=== PATIENT | male | born 1970 | race Caucasian/White ===

== ENCOUNTER 2019-07-04 11:58 | Emergency (ER) | payer SELFPAY ==
[~2019-07-04] VITALS: Ht 182.8 cm; Wt 95.3 kg
[~2019-07-04 11:58] MED LIST: CYCLOBENZAPRINE10 MG PO; FLEXERIL10 MG PO; MEDROL DOSEPAK4 MG PO; NAPROSYN500 MG PO; NORCO 5-325 TA1 EACH PO; OMNICEF300 MG PO; VICODIN 5/500 505 MG PO; ZYRTEC10 MG PO
[2019-07-04] MEDS ORDERED: TYLENOL325 M1 PO (12:16)
[2019-07-04] MEDS ORDERED: CYCLOBENZAPRINE10 MG PO (12:16)
[2019-07-04] MEDS ORDERED: DELTASONE20 M1 PO (12:16)
== END 2019-07-04 12:37 | disposition home or self-care (01) ==
LOC: ED 11:58
DX: M54.5 Low back pain (principal); K02.9 Dental caries, unspecified; X50.1XXA Overexertion from prolonged static or awkward postures, initial encounter; Y93.H2 Activity, gardening and landscaping; Y92.89 Other specified places as the place of occurrence of the external cause; Y99.8 Other external cause status